=== PATIENT | female | born 1950 | race Caucasian/White ===

== ENCOUNTER → 2020-12-22 | Outpatient (CLI) | payer MEDICARE, OTHER ==
[2020-12-31 15:13] LABS: METANEPHRINE, PL <10.0 pg/mL (0.0-88.0); NORMETANEPHRINE, PL 44.4 pg/mL (0.0-191.8)
[2021-01-01 15:10] LABS: ALDOS/RENIN RATIO >16.2 (0.0-30.0); ALDOSTERONE 2.7 ng/dL (0.0-30.0)
== END ==
LOC: CT 08:14
PROVIDERS: Internal Medicine
DX: D35.02 Benign neoplasm of left adrenal gland (principal); K76.9 Liver disease, unspecified
CPT/HCPCS: 36415; 74170; 82088; 82533; 83835; 84244; G0480; Q9967

== ENCOUNTER → 2021-04-07 | Outpatient (CLI) | payer MEDICARE, OTHER | LOC: EXRD 08:52 | DX: K76.0 Fatty (change of) liver, not elsewhere classified (principal) | CPT/HCPCS: 76700 ==

== ENCOUNTER → 2022-01-11 | Outpatient (CLI) | payer MEDICARE, OTHER | LOC: ECHO 09:32 | DX: I10 Essential (primary) hypertension (principal); R01.1 Cardiac murmur, unspecified | CPT/HCPCS: ECHO; 93306 ==

== ENCOUNTER → 2022-04-02 | Outpatient (CLI) | payer MEDICARE, OTHER | LOC: US 02-21 08:30 | DX: K76.0 Fatty (change of) liver, not elsewhere classified (principal) | CPT/HCPCS: 76700 ==